=== PATIENT | male | born 1950 | race Caucasian/White ===

== ENCOUNTER 2021-01-14 15:58 | Outpatient (CLI) | payer MEDICARE, OTHER ==
[2021-01-15 03:55] LABS: SARS-CoV-2 PCR by NAA Not Detected (NotDetected)
== END 2021-01-14 15:59 | disposition home or self-care (01) ==
LOC: CSHLAB 15:58
PROVIDERS: ATTEND Internal Medicine Cardiovascular Disease
DX: Z20.822 Contact with and (suspected) exposure to COVID-19 (principal); R06.02 Shortness of breath
CPT/HCPCS: 87635; U0003; U0005

== ENCOUNTER 2021-01-18 13:31 | Outpatient (CLI) | payer MEDICARE, OTHER | END 2021-01-18 13:32 | disposition home or self-care (01) | LOC: CSHCP 13:31 | PROVIDERS: ATTEND Internal Medicine Cardiovascular Disease | DX: R06.02 Shortness of breath (principal) | CPT/HCPCS: 94060; 94726; 94729; 94760 ==

== ENCOUNTER 2022-03-20 16:01 | Emergency (ER) | payer OTHER, MEDICARE ==
[2022-03-20] MEDS ORDERED: Ketorolac Tromethamine 30 MG/ML VIAL ONE (18:06)
[2022-03-20] MEDS ORDERED: Cyclobenzaprine 10 MG TAB ONE (18:06)
[2022-03-20] MEDS ORDERED: Ondansetron ODT 4 MG TAB ONE (18:06)
== END 2022-03-20 18:21 | disposition home or self-care (01) ==
LOC: CSHERS 16:01
DX: M62.838 Other muscle spasm (principal); R51.9 Headache, unspecified; R11.0 Nausea; I10 Essential (primary) hypertension; V89.2XXA Person injured in unspecified motor-vehicle accident, traffic, initial encounter
CPT/HCPCS: 96372; 99283; J1885; Q0162

== ENCOUNTER 2023-06-07 10:22 | Outpatient (CLI) | payer MEDICARE, OTHER | END 2023-06-07 10:23 | disposition home or self-care (01) | LOC: CSHCT 10:22 | PROVIDERS: ATTEND Nurse Practitioner Family | DX: R42 Dizziness and giddiness (principal); H53.9 Unspecified visual disturbance | CPT/HCPCS: 70450 ==

== ENCOUNTER 2023-07-14 10:42 | Inpatient (IN) | payer MEDICARE, OTHER ==
[2023-07-14] MEDS ORDERED: Pantoprazole 40 MG VIAL ONE (11:10)
[2023-07-14] MEDS ORDERED: Morphine 4 MG/ML VIAL ONE ×2 (11:10→15:19)
[2023-07-14] MEDS ORDERED: Ondansetron PF 4 MG/2 ML Vial ONE ×3 (11:10→15:21)
[2023-07-14 11:18] LABS: #Monocytes 0.6 10x3/uL (0.0-1.1); #Neutrophils 8.3 10x3/uL (1.5-8.4); %Basophils 0.2 % (0.0-2.0); %Lymphocytes 12.3 % (18.0-47.0); %Monocytes 5.4 % (0.0-10.0); %Neutrophils 81.6 % (40.0-75.0); Hematocrit 47.2 % (38.8-50.0); Hemoglobin 16.3 g/dL (13.5-17.5); Mean Corpuscular HGB CONC 34.5 g/dL (32.0-36.0); Mean Corpuscular Volume 83.8 fl (81.2-95.1); Mean Platelet Volume 9.8 fl (7.4-10.4); Platelet Count 241 10x3/uL (150-450); RBC Distribution Width 13.2 % (11.5-14.5); Red Blood Cell (RBC) Count 5.63 10x6/uL (4.32-5.72); White Blood Cell (WBC) Count 10.2 10x3/uL (3.5-10.5)
[2023-07-14 11:32] LABS: ALT (SGPT) 15 U/L (8-55); AST (SGOT) 15 U/L (5-34); Albumin 4.6 g/dL (3.4-4.8); Alkaline Phosphatase 85 U/L (40-110); Anion Gap 16 mmol/L (10-20); BUN (Urea Nitrogen) 17 mg/dL (8.4-25.7); Bilirubin, Total 0.7 mg/dL (0.2-1.2); CK (CPK) 59 U/L (30-200); Calc. Creatinine Clearance 0 mL/min (70-130); Calcium 9.5 mg/dL (7.8-10.44); Carbon Dioxide 28 mmol/L (23-31); Chloride 99 mmol/L (98-107); Estimated GFR 87; Globulin 3.3 g/dL (2.4-3.5); Glucose 133 mg/dL (83-110); Lipase 4 U/L (8-78); Potassium 3.2 mmol/L (3.5-5.1); Protein, Total 7.9 g/dL (5.8-8.1); Sodium 140 mmol/L (136-145)
[2023-07-14 11:35] LABS: Troponin I Less than 0.010 ng/mL (< 0.028)
[2023-07-14] MEDS ORDERED: Ondansetron PF 4 MG/2 ML Vial IVP PRN (13:50)
[2023-07-14] MEDS ORDERED: Acetaminophen 650 MG Suppository PR PRN (13:50)
[2023-07-14] MEDS ORDERED: hydrALAZINE 20 MG/ML VIAL SLOW IVP PRN (13:53)
[2023-07-14] MEDS ORDERED: Morphine 4 MG/ML VIAL SLOW IVP PRN (13:54)
[2023-07-14] MEDS ORDERED: Sodium Chloride 0.9% 1,000 ML IV SCH (14:00)
[2023-07-14 14:15] LABS: Bilirubin Neg (Negative); Blood, Urine 50 (Negative); Clarity Clear (Clear); Glucose, Urine (Dipstick) Normal (Negative); Ketone, Urine Negative (Negative); Leukocyte Negative (Negative); Nitrite Negative (Negative); Protein, Urine (Dipstick) 100 mg/dl (Neg-Trace); Specific Gravity, Urine 1.015 (1.005-1.030); Urobilinogen Normal mg/dL (Less than 2); pH, Urine 6.5 (5.0-9.0)
[2023-07-14 14:31] LABS: Bacteria/HPF None Seen HPF (None Seen); CAUTI Indications for Culture Pelvic or flank pain; RBC/HPF 0-3 HPF (0-3); Squamous Epithelial None Seen HPF (0-3); Urine Culture Reflex No No; WBC/HPF 0-3 HPF (0-3)
[2023-07-14] MEDS ORDERED: Iopamidol 300 61% 100 ML VIAL FS ONE (14:31)
[2023-07-14 16:52] VITALS: BMI 34.6
[2023-07-14] MEDS ORDERED: Morphine 2 MG/ML VIAL SLOW IVP SCH ×2 (17:30→18:15)
[2023-07-14] MEDS ORDERED: Ketorolac Tromethamine 30 MG/ML VIAL IVP SCH ×2 (17:30→18:15)
[2023-07-14] MEDS ORDERED: Ketorolac Tromethamine 30 MG/ML VIAL IVP PRN (19:37)
[2023-07-14] MEDS ORDERED: Potassium Chloride 20 MEQ in Premix Bag 1 BAG IVPB SCH (20:00)
[2023-07-14] MEDS: Lactated Ringer's 1,000 ML IV SCH (20:10)
[2023-07-14] MEDS: Pantoprazole 40 MG VIAL IVP SCH (20:11)
[2023-07-15 05:58] LABS: #Eosinphils 0.1 10x3/uL (0.0-0.5); #Monocytes 0.7 10x3/uL (0.0-1.1); #Neutrophils 4.9 10x3/uL (1.5-8.4); %Basophils 0.3 % (0.0-2.0); %Eosinophils 1.1 % (0.0-6.0); %Monocytes 10.2 % (0.0-10.0); %Neutrophils 74.2 % (40.0-75.0); Hematocrit 41.7 % (38.8-50.0); Mean Corpuscular HGB CONC 33.6 g/dL (32.0-36.0); Mean Corpuscular Volume 86.5 fl (81.2-95.1); Mean Platelet Volume 10.1 fl (7.4-10.4); Platelet Count 223 10x3/uL (150-450); RBC Distribution Width 13.3 % (11.5-14.5); Red Blood Cell (RBC) Count 4.82 10x6/uL (4.32-5.72); White Blood Cell (WBC) Count 6.6 10x3/uL (3.5-10.5)
[2023-07-15 06:13] LABS: Anion Gap 12 mmol/L (10-20); BUN (Urea Nitrogen) 22 mg/dL (8.4-25.7); Calc. Creatinine Clearance 91 mL/min (70-130); Calcium 8.3 mg/dL (7.8-10.44); Carbon Dioxide 29 mmol/L (23-31); Chloride 106 mmol/L (98-107); Estimated GFR 68; Glucose 123 mg/dL (83-110); Magnesium 1.8 mg/dL (1.6-2.6); Potassium 3.4 mmol/L (3.5-5.1); Sodium 144 mmol/L (136-145)
[2023-07-15] MEDS: Lactated Ringer's 1,000 ML IV SCH (08:52)
[2023-07-15] MEDS: Cholestyramine/Aspartame 4 gm Packet PO SCH (09:54)
[2023-07-15] MEDS ORDERED: clonazePAM 1 MG TAB PO PRN (20:40)
[2023-07-15] MEDS: Pantoprazole 40 MG VIAL IVP SCH (22:09)
[2023-07-16] MEDS: Lactated Ringer's 1,000 ML IV SCH ×2 (02:32→07:55)
[2023-07-16 04:45] LABS: #Eosinphils 0.1 10x3/uL (0.0-0.5); #Monocytes 0.5 10x3/uL (0.0-1.1); #Neutrophils 3.7 10x3/uL (1.5-8.4); %Basophils 0.4 % (0.0-2.0); %Eosinophils 1.6 % (0.0-6.0); %Lymphocytes 21.2 % (18.0-47.0); %Monocytes 9.1 % (0.0-10.0); %Neutrophils 67.5 % (40.0-75.0); Hematocrit 38.4 % (38.8-50.0); Hemoglobin 12.9 g/dL (13.5-17.5); Mean Corpuscular HGB CONC 33.6 g/dL (32.0-36.0); Mean Corpuscular Hemoglobin 28.7 pg (27.0-33.0); Mean Corpuscular Volume 85.3 fl (81.2-95.1); Mean Platelet Volume 9.8 fl (7.4-10.4); Platelet Count 193 10x3/uL (150-450); RBC Distribution Width 13.2 % (11.5-14.5); White Blood Cell (WBC) Count 5.5 10x3/uL (3.5-10.5)
[2023-07-16 04:55] LABS: Anion Gap 9 mmol/L (10-20); BUN (Urea Nitrogen) 12 mg/dL (8.4-25.7); Calc. Creatinine Clearance 126 mL/min (70-130); Carbon Dioxide 30 mmol/L (23-31); Chloride 104 mmol/L (98-107); Estimated GFR 94; Glucose 104 mg/dL (83-110); Potassium 3.1 mmol/L (3.5-5.1); Sodium 140 mmol/L (136-145)
[2023-07-16] MEDS ORDERED: Potassium Chloride 20 MEQ TAB PO SCH (07:00)
[2023-07-16 07:14] VITALS: BP 133/67; TEMP 97.8
[2023-07-16] MEDS: Cholestyramine/Aspartame 4 gm Packet PO SCH (07:54)
[2023-07-16] MEDS ORDERED: cloNIDine 0.2 MG TAB PO SCH (09:00)
[2023-07-16] MEDS ORDERED: Losartan Potassium 50 MG TAB PO SCH (09:00)
[2023-07-16] MEDS ORDERED: Tamsulosin HCl 0.4 MG CAP PO SCH (09:00)
[2023-07-16] MEDS ORDERED: cloNIDine 0.1 MG TAB PO SCH (09:00)
[2023-07-16] MEDS ORDERED: Amlodipine 10 MG TAB PO SCH (09:00)
[2023-07-16] MEDS ORDERED: Hydrochlorothiazide 25 MG TAB PO SCH (09:00)
== END 2023-07-16 10:44 | disposition home or self-care (01) | DRG 390 ==
LOC: CSHERS 10:42 → CSHTELE 13:59
PROVIDERS: ADMIT Internal Medicine; ATTEND Internal Medicine
PROC: 0D9670Z Drainage of Stomach with Drainage Device, Via Natural or Artificial Opening (ICD-10-PCS; principal; 2023-07-14)
DX: K56.609 Unspecified intestinal obstruction, unspecified as to partial versus complete obstruction (principal); I10 Essential (primary) hypertension; E66.9 Obesity, unspecified; N40.0 Benign prostatic hyperplasia without lower urinary tract symptoms; Z68.34 Body mass index [BMI] 34.0-34.9, adult; Z79.899 Other long term (current) drug therapy; Z87.891 Personal history of nicotine dependence; Z90.49 Acquired absence of other specified parts of digestive tract
CPT/HCPCS: 36415; 71045; 74177; 80048; 80053; 81001; 82550; 83690; 83735; 84484; 85025; 93005; 94760; C9113; J1885; J2270; J2272; J2405; J3480; J7050; J7120; Q9967

== ENCOUNTER 2023-12-28 13:20 | Outpatient (CLI) | payer MEDICARE, OTHER ==
[~2023-12-28 13:20] MED LIST: Iopamidol 300 61% 100 ML VIAL FS ONE
== END 2023-12-28 13:21 | disposition home or self-care (01) ==
LOC: CSHCT 13:20
PROVIDERS: ATTEND Urology
DX: R97.20 Elevated prostate specific antigen [PSA] (principal); N20.0 Calculus of kidney; N28.1 Cyst of kidney, acquired; R91.8 Other nonspecific abnormal finding of lung field; K76.9 Liver disease, unspecified; Z90.49 Acquired absence of other specified parts of digestive tract; Q26.8 Other congenital malformations of great veins; M43.17 Spondylolisthesis, lumbosacral region
CPT/HCPCS: 74178; 82565; Q9967

== ENCOUNTER 2024-04-01 14:06 | Outpatient (CLI) | payer MEDICARE, OTHER ==
[~2024-04-01 14:06] MED LIST changes: -Iopamidol 300 61% 100 ML VIAL FS ONE; +Magnevist 469MG/ML 20 ML VIAL ONE
== END 2024-04-01 14:07 | disposition home or self-care (01) ==
LOC: CSHMRI 14:06
PROVIDERS: ATTEND Urology
DX: C61 Malignant neoplasm of prostate (principal); N40.2 Nodular prostate without lower urinary tract symptoms; R93.89 Abnormal findings on diagnostic imaging of other specified body structures
CPT/HCPCS: 72197; 82565; A9579